=== PATIENT | male | born 1975 | race African-American/Black ===

== ENCOUNTER → 2017-04-01 | Outpatient (CLI) | payer OTHER ==
--- NOTE | 2017-04-01 13:10 | REP ---
Clinical: Radiculopathy. Technique: AP, lateral, bilateral oblique and coned-down views of the lumbosacral spine. Findings: Mild degenerative changes include very subtle anterior spurring at the T12 and L1 levels as well as the L4-5 and L5-S1 levels along with disc space narrowing at T12-L1 and L5-S1. Alignment and lordosis maintained. No acute fracture / compression injury or subluxation. Impression: Mild degenerative changes suggested as described above. Signed by James Salmeron MD 04/01/2017 01:02 P
== END ==
LOC: M LAB 10:59
PROVIDERS: ATTEND Student in an Organized Health Care Education/Training Program
DX: M54.16 Radiculopathy, lumbar region (principal); M51.36 Other intervertebral disc degeneration, lumbar region; M51.37 Other intervertebral disc degeneration, lumbosacral region

== ENCOUNTER → 2017-04-06 | Outpatient (REF) | payer OTHER | LOC: M SFHCPLAZ 12:42 | PROVIDERS: ATTEND Family Medicine | DX: Z11.59 Encounter for screening for other viral diseases (principal); Z11.4 Encounter for screening for human immunodeficiency virus [HIV]; Z53.8 Procedure and treatment not carried out for other reasons ==

== ENCOUNTER → 2017-06-08 | Outpatient (REF) | payer OTHER | LOC: M SFHCPLAZ 12:46 | PROVIDERS: ATTEND Family Medicine | DX: F17.200 Nicotine dependence, unspecified, uncomplicated (principal) ==

== ENCOUNTER 2019-01-05 12:44 | Emergency (ER) | payer OTHER ==
[~2019-01-05] VITALS: Ht 170.2 cm; Wt 87.3 kg
[~2019-01-05 12:44] MED LIST: AMLO5TAB6 PO; LISI20TA PO; SUBO8MIS SL
[2019-01-05] MEDS ORDERED: LISI20TA (12:50)
[2019-01-05] MEDS ORDERED: BANO25CA (12:50)
--- NOTE | 2019-01-05 13:48 | REP ---
Portable chest, 01:28 p.m., single AP upright view: There are no comparisons. The lung rosado are clear. The cardiac size is normal. The sterling, mediastinum, and skeletal structures are unremarkable. Impression: Negative portable chest. Electronically Signed by Ravinder Mack MD 01/05/2019 01:39 P
[2019-01-05 13:49] LABS: BASO % 0.2 % (0.0-1.0); EOS # 0.1 10^3/uL (0.0-0.50); EOS % 1.6 % (0.0-3.0); HEMATOCRIT 38.9 % (42.0-52.0); HEMOGLOBIN 13.3 g/dl (13.5-17.5); LYMPH # 2.9 10^3/uL (1.5-4.5); MEAN CORPUSCULAR HEMOGLOBIN 31.6 pg (27.0-33.0); MEAN CORPUSCULAR HGB CONC 34.2 g/dl (32.0-36.5); MEAN CORPUSCULAR VOLUME 92.4 fl (80.0-96.0); MONO # 0.7 10^3/uL (0.0-0.8); NEUTROPHILS # 4.4 10^3/uL (1.8-7.7); PLATELET COUNT, AUTOMATED 197 10^3/uL (150-450); RED BLOOD COUNT 4.21 10^6/uL (4.30-6.10); WHITE BLOOD COUNT 8.1 10^3/uL (4.0-10.0)
--- NOTE | 2019-01-05 14:12 | REP ---
Supine abdomen two views: Comparison is 10/07/2002. The bowel gas pattern is normal. There is a calcification in the pelvis on the left, nonspecific, ureteral versus phlebolith, correlate with clinical symptoms. This was not present previously. The skeletal structures and soft tissues otherwise are unremarkable. Electronically Signed by Ravinder Mack MD 01/05/2019 02:03 P
[2019-01-05 14:17] LABS: CREATININE FOR GFR 1.63 MG/DL (0.70-1.30); GLOMERULAR FILTRATION RATE 59.3 (>60); MB/CK RELATIVE INDEX 0.49 (< OR =4); POTASSIUM SERUM 4.2 MEQ/L (3.5-5.1); TROPONIN I 0.03 NG/ML (< 0.10)
--- NOTE | 2019-01-05 15:20 | REP ---
Bilateral lower extremity Duplex Doppler venous ultrasound: Real time compression and duplex Doppler interrogation of the bilateral lower extremity deep venous system is performed. Bilaterally, the common femoral, superficial femoral and popliteal veins are fully compressible with transducer pressure and demonstrate normal spontaneous and phasic flow, without evidence of deep venous thrombosis. Impression: No evidence of deep venous thrombosis of the bilateral lower extremity femoral popliteal venous system. Electronically Signed by Ravinder Greene MD 01/05/2019 03:12 P
[2019-01-05] MEDS ORDERED: NICO14DI3 TOP (15:52)
[2019-01-05] MEDS ORDERED: MIRA3350 PO (15:52)
[2019-01-05 16:08] VITALS: BP 114/71
--- NOTE | 2019-01-05 21:59 | ECGEPIP ---
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
== END 2019-01-05 16:15 | disposition home or self-care (01) ==
LOC: M ED 12:44
DX: K59.00 Constipation, unspecified (principal); N18.3 Chronic kidney disease, stage 3 (moderate); I12.9 Hypertensive chronic kidney disease with stage 1 through stage 4 chronic kidney disease, or unspecified chronic kidney disease; Z79.899 Other long term (current) drug therapy; Z79.891 Long term (current) use of opiate analgesic; F17.210 Nicotine dependence, cigarettes, uncomplicated

== ENCOUNTER → 2019-01-09 | Outpatient (CLI) | payer OTHER ==
[~2019-01-09] MED LIST changes: +BANO25CA; +LISI20TA; +MIRA3350 PO; +NICO14DI3 TOP
[2019-01-09 18:11] LABS: APPEARANCE, URINE CLEAR (CLEAR); BACTERIA, URINE AUTO NEGATIVE (NEGATIVE); BILIRUBIN, URINE AUTO NEGATIVE (NEGATIVE); BLOOD, URINE BLOOD NEGATIVE (NEGATIVE); COLOR, URINE YELLOW (YELLOW); GLUCOSE, URINE (UA) AUTO NEGATIVE (NEGATIVE); KETONE, URINE AUTO NEGATIVE (NEGATIVE); LEUKOCYTE ESTERASE, URINE AUTO NEGATIVE (NEGATIVE); MUCUS, URINE SMALL (NEGATIVE); NITRITE, URINE AUTO NEGATIVE (NEGATIVE); PROTEIN, URINE AUTO NEGATIVE (NEGATIVE); RBC, URINE AUTO 1 /HPF (0-3); SPECIFIC GRAVITY URINE AUTO 1.025 (1.002-1.035); SQUAMOUS EPITHELIAL CELL UR AU 0 /HPF (0-6); WBC, URINE AUTO 1 /HPF (0-3)
[2019-01-09 18:34] LABS: MALB URINE SIEMENS 26.5 MG/L; MAU/CREAT RATIO 7.9 MCG/MG (0.0-30.0)
[2019-01-09 18:39] LABS: ALBUMIN 4.2 GM/DL (3.2-5.2); ALT/SGPT 25 U/L (12-78); BILIRUBIN,TOTAL 0.3 MG/DL (0.2-1.0); BLOOD UREA NITROGEN 17 MG/DL (7-18); CARBON DIOXIDE LEVEL 29 MEQ/L (21-32); CHLORIDE LEVEL 106 MEQ/L (98-107); CHOLESTEROL LEVEL 192 MG/DL (<200); CREATININE FOR GFR 1.51 MG/DL (0.70-1.30); GLOMERULAR FILTRATION RATE > 60.0 (>60); GLUCOSE, FASTING 101 MG/DL (70-100); HDL CHOLESTEROL 29 MG/DL (>40); LDL CHOLESTEROL 117 MG/DL (<100); NON-HDL-C 163 MG/DL; POTASSIUM SERUM 4.4 MEQ/L (3.5-5.1); SODIUM LEVEL 140 MEQ/L (136-145); TOTAL PROTEIN 7.5 GM/DL (6.4-8.2); TRIGLYCERIDES LEVEL 229 MG/DL (<150)
== END ==
LOC: M WUC 15:02
PROVIDERS: ATTEND Student in an Organized Health Care Education/Training Program
DX: R07.9 Chest pain, unspecified (principal); N18.3 Chronic kidney disease, stage 3 (moderate)

== ENCOUNTER 2021-05-28 11:39 | Emergency (ER) | payer OTHER ==
[~2021-05-28] VITALS: Ht 170.2 cm; Wt 93.3 kg
[~2021-05-28 11:39] MED LIST changes: +AMLO1TAB24 PO; -AMLO5TAB6 PO; -BANO25CA; +DIPH-319; -LISI20TA; -LISI20TA PO; +LISI20TA35; +LISI20TA35 PO
[2021-05-28] MEDS ORDERED: hydroCHLOROthiazide 12.5 MG CAPSULE PO ONE (12:20)
[2021-05-28 12:51] VITALS: BP 216/131
[2021-05-28 13:05] LABS: BASO % 0.6 % (0.0-1.0); EOS # 0.2 10^3/uL (0.0-0.5); EOS % 3.2 % (0.0-3.0); HEMATOCRIT 41.4 % (42.0-52.0); HEMOGLOBIN 13.4 g/dl (13.5-17.5); LYMPH % 46.6 % (24.0-44.0); MEAN CORPUSCULAR HEMOGLOBIN 31.7 pg (27.0-33.0); MEAN CORPUSCULAR HGB CONC 32.4 g/dl (32.0-36.5); MEAN CORPUSCULAR VOLUME 97.9 fl (80.0-96.0); MONO # 0.6 10^3/uL (0.0-0.8); MONO % 9.5 % (2.0-8.0); NEUTROPHILS # 2.6 10^3/uL (1.5-8.5); NEUTROPHILS % 39.8 % (36.0-66.0); PLATELET COUNT, AUTOMATED 210 10^3/uL (150-450); RED BLOOD COUNT 4.23 10^6/uL (4.30-6.10); WHITE BLOOD COUNT 6.5 10^3/uL (4.0-10.0)
--- NOTE | 2021-05-28 13:23 | REP ---
INDICATION: CHEST PAIN. COMPARISON: 01/05/2019. TECHNIQUE: Single portable AP view of the chest was performed. FINDINGS: There is no acute infiltrate or pulmonary edema. Lungs are clear. The heart is not significantly enlarged. The mediastinal silhouette is unremarkable. The visualized osseous structures are intact.There is again elevation of the right hemidiaphragm, unchanged. IMPRESSION: No acute pulmonary disease. <Electronically signed by Ravinder Greene > 05/28/21 [id number]
[2021-05-28 13:40] LABS: ALBUMIN 3.7 GM/DL (3.2-5.2); ALT/SGPT 26 U/L (12-78); BILIRUBIN,DIRECT < 0.1 MG/DL (0.0-0.2); BILIRUBIN,TOTAL 0.2 MG/DL (0.2-1.0); BLOOD UREA NITROGEN 19 MG/DL (7-18); CALCIUM LEVEL 8.9 MG/DL (8.5-10.1); CARBON DIOXIDE LEVEL 29 MEQ/L (21-32); CHLORIDE LEVEL 107 MEQ/L (98-107); CK-MB VALUE MASS 4.8 NG/ML (<3.6); CPK CREATINE PHOSPHOKINASE 629 U/L (39-308); CREATININE FOR GFR 1.05 MG/DL (0.70-1.30); GLOMERULAR FILTRATION RATE > 60.0 (>60); GLUCOSE, FASTING 110 MG/DL (70-100); LIPASE 69 U/L (73-393); MB/CK RELATIVE INDEX 0.76 (< OR =4); NT-PRO BNP 172 PG/ML (<125); POTASSIUM SERUM 4.7 MEQ/L (3.5-5.1); SODIUM LEVEL 139 MEQ/L (136-145); TOTAL PROTEIN 7.3 GM/DL (6.4-8.2); TROPONIN I 0.04 NG/ML (< 0.10)
[2021-05-28] MEDS ORDERED: NS 1,000 ML IV ONE (14:05)
[2021-05-28 18:33] LABS: CK-MB VALUE MASS 4.2 NG/ML (<3.6); MB/CK RELATIVE INDEX 0.82 (< OR =4); TROPONIN I 0.03 NG/ML (< 0.10)
[2021-05-28] MEDS ORDERED: LISI20TA35 PO (18:52)
[2021-05-28 19:24] VITALS: BP 171/105
--- NOTE | 2021-05-29 11:33 | ECGEPIP ---
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
--- NOTE | 2021-05-29 11:39 | ECGEPIP ---
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
== END 2021-05-28 19:30 | disposition home or self-care (01) ==
LOC: M ED 11:39
DX: I12.9 Hypertensive chronic kidney disease with stage 1 through stage 4 chronic kidney disease, or unspecified chronic kidney disease (principal); N18.30 Chronic kidney disease, stage 3 unspecified; R94.31 Abnormal electrocardiogram [ECG] [EKG]; Z79.899 Other long term (current) drug therapy

== ENCOUNTER 2024-03-10 16:10 | Inpatient (IN) | payer OTHER ==
[~2024-03-10] VITALS: Ht 177.8 cm; Wt 86.5 kg
[~2024-03-10 16:10] MED LIST changes: -DIPH-319; +DIPH-429
[2024-03-10 17:34] LABS: BASO % 0.3 % (0.0-1.0); EOS # 0.1 10^3/uL (0.0-0.5); EOS % 0.9 % (0.0-3.0); HEMATOCRIT 39.8 % (42.0-52.0); HEMOGLOBIN 13.2 g/dl (13.5-17.5); LYMPH % 29.4 % (24.0-44.0); MEAN CORPUSCULAR HEMOGLOBIN 32.2 pg (27.0-33.0); MEAN CORPUSCULAR HGB CONC 33.2 g/dl (32.0-36.5); MEAN CORPUSCULAR VOLUME 97.1 fl (80.0-96.0); MONO # 0.7 10^3/uL (0.0-0.8); MONO % 10.1 % (2.0-8.0); NEUTROPHILS # 3.9 10^3/uL (1.5-8.5); PLATELET COUNT, AUTOMATED 191 10^3/uL (150-450); WHITE BLOOD COUNT 6.6 10^3/uL (4.0-10.0)
[2024-03-10 17:55] LABS: LIPASE 25 U/L (12-53)
[2024-03-10 17:56] LABS: CPK CREATINE PHOSPHOKINASE 445 U/L (46-171)
[2024-03-10 17:57] LABS: ALBUMIN 4.5 G/DL (3.2-5.2); ALKALINE PHOSPHATASE 84 U/L (46-116); ALT/SGPT 17 U/L (7.0-40); AST/SGOT 30 U/L (<34); BILIRUBIN,DIRECT 0.2 MG/DL (<0.4); BILIRUBIN,TOTAL 0.6 MG/DL (0.3-1.2); CK-MB VALUE MASS 3.9 NG/ML (<3.6); MB/CK RELATIVE INDEX 0.87 (< OR =4); TOTAL PROTEIN 7.7 G/DL (5.7-8.2)
[2024-03-10 18:45] LABS: INR 1.15; PARTIAL THROMBOPLASTIN TIME 27.2 SECONDS (24.8-34.2); PROTHROMBIN TIME 14.4 SECONDS (12.5-14.5)
[2024-03-10 18:49] LABS: BLOOD UREA NITROGEN 23 MG/DL (9-23); CALCIUM LEVEL 11.1 MG/DL (8.5-10.1); CARBON DIOXIDE LEVEL 28 MMOL/L (20-31); CHLORIDE LEVEL 101 MMOL/L (98-107); CREATININE FOR GFR 1.57 MG/DL (0.70-1.30); GLOMERULAR FILTRATION RATE > 60.0 (>56); GLUCOSE, FASTING 98 MG/DL (60-100); POTASSIUM SERUM 4.2 MMOL/L (3.5-5.1); SODIUM LEVEL 136 MMOL/L (136-145)
[2024-03-10] MEDS: MORPHINE 2 MG/ML 1ML VIAL IV ONE (18:50)
[2024-03-10 19:02] LABS: CK-MB VALUE MASS 3.6 NG/ML (<3.6)
[2024-03-10 19:03] LABS: MB/CK RELATIVE INDEX 0.79 (< OR =4)
[2024-03-10] MEDS ORDERED: NITROGLYCERIN 2% OINT 1 GM *U/D* PKT TOP ONE (19:05)
[2024-03-10 19:10] LABS: TOTAL PROTEIN,RANDOM URINE 95.1 MG/DL (0.0-14.0)
[2024-03-10] MEDS: NITROGLYCERIN 2% OINT 1 GM *U/D* PKT TOP ONE (19:35)
[2024-03-10 19:43] LABS: AMPHETAMINES LEVEL URINE NEGATIVE (NEGATIVE); BARBITURATES URINE NEGATIVE (NEGATIVE); BENZODIAZEPINES URINE NEGATIVE (NEGATIVE); CANNABINOIDS URINE NEGATIVE (NEGATIVE); COCAINE METABOLITE URINE NEGATIVE (NEGATIVE); METHADONE URINE NEGATIVE (NEGATIVE); OPIATES URINE NEGATIVE (NEGATIVE); PHENCYCLIDINE URINE NEGATIVE (NEGATIVE)
[2024-03-10] MEDS: NS 1,000 ML IV ONE (19:46)
[2024-03-10] MEDS: KETOROLAC 30 MG/ML 1ML VIAL IV ONE (20:15)
[2024-03-10] MEDS: LABETALOL 100MG/20ML VIAL IV STA ×2 (20:16→23:39)
[2024-03-10] MEDS ORDERED: ACET-897 PO (20:28)
[2024-03-10] MEDS ORDERED: HOME MED LIST COMPLETE! XX SCH (20:30)
[2024-03-10 20:46] LABS: CPK CREATINE PHOSPHOKINASE 485 U/L (46-171); MB/CK RELATIVE INDEX 0.82 (< OR =4)
[2024-03-10 21:26] LABS: HIV 1&2 SCREEN NEGATIVE (NEGATIVE)
[2024-03-11] VITALS (7 sets, daily range): BP systolic 142–189; BP diastolic 80–107; TEMP 97.5–98; O2SAT 93–100
[2024-03-11] MEDS ORDERED: ACETAMINOPHEN *IV* 1,000 MG in IV 1 EA IV PRN (00:10)
[2024-03-11] MEDS ORDERED: ONDANSETRON 4MG 2ML VIAL IV PRN (00:10)
[2024-03-11] MEDS: BUPRENORPHINE/NALOXONE 8-2MG SUBLINGUAL TABLET(SUBOXONE) SL ONE (00:20)
[2024-03-11 00:58] LABS: ETHYL ALCOHOL (ETHANOL) < 0.003 % (0.000-0.010)
[2024-03-11] MEDS: LABETALOL 200 MG TAB PO ONE (01:28)
[2024-03-11] MEDS: NICOTINE 21MG/24HR 1 EA TRANSDERMAL TD ONE (01:28)
[2024-03-11] MEDS: hydrALAZINE 20MG/ML 1ML VIAL IV PRN (02:26)
[2024-03-11] MEDS: HEPARIN SOD (PORCINE) 5000UNITS/ML 1ML VIAL/SYRINGE SC SCH (05:45)
[2024-03-11] MEDS ORDERED: SELF1KIT MC (08:09)
[2024-03-11] MEDS ORDERED: AMLO1TAB25 PO (08:09)
[2024-03-11] MEDS ORDERED: LABE300T28 PO (08:09)
[2024-03-11] MEDS: MIRALAX *UNIT DOSE* 17GM PACKET PO SCH (08:43)
[2024-03-11] MEDS: DOCUSATE SODIUM 100MG CAPSULE PO SCH (08:43)
[2024-03-11] MEDS: BUPRENORPHINE/NALOXONE 8-2MG SUBLINGUAL TABLET(SUBOXONE) SL SCH (08:43)
[2024-03-11] MEDS: LABETALOL 100MG TAB PO SCH (08:44)
[2024-03-11] MEDS ORDERED: **hydrALAZINE HCL** 25 MG TAB PO SCH (09:00)
[2024-03-11] MEDS ORDERED: LABETALOL 200 MG TAB PO SCH (09:00)
[2024-03-11] MEDS: CALCIUM CARBONATE 500 MG CHEW U/D PO ONE (10:10)
[2024-03-11] MEDS: PANTOPRAZOLE 40MG VIAL IV ONE (10:10)
[2024-03-11] MEDS: MAALOX 30 ML SUSP *UDC PO ONE (10:10)
[2024-03-11] MEDS: ONDANSETRON 4MG 2ML VIAL IV ONE (10:10)
[2024-03-11] MEDS ORDERED: NITROGLYCERIN 0.4MG SUBL TABLET SL PRN (10:10)
[2024-03-11] MEDS: MORPHINE 2 MG/ML 1ML VIAL IV ONE (10:10)
[2024-03-11] MEDS: SUCRALFATE SUSP 1GM/10ML UD PO ONE (10:10)
[2024-03-11] MEDS: NITROGLYCERIN 0.4MG SUBL TABLET SL STA (10:11)
[2024-03-11] MEDS ORDERED: ISOVUE-370 76% 100ML VIAL As Ordered ONE (10:18)
[2024-03-11 11:17] LABS: CK-MB VALUE MASS 4.7 NG/ML (<3.6)
[2024-03-11 11:19] LABS: MB/CK RELATIVE INDEX 0.55 (< OR =4)
[2024-03-11] MEDS: SUCRALFATE SUSP 1GM/10ML UD PO SCH (13:10)
[2024-03-11] MEDS ORDERED: ISOS20TA4 PO (15:37)
[2024-03-11 16:20] LABS: BLOOD UREA NITROGEN 26 MG/DL (9-23); CALCIUM LEVEL 9.5 MG/DL (8.5-10.1); CARBON DIOXIDE LEVEL 25 MMOL/L (20-31); CHLORIDE LEVEL 104 MMOL/L (98-107); CREATININE FOR GFR 1.49 MG/DL (0.70-1.30); GLOMERULAR FILTRATION RATE > 60.0 (>56); GLUCOSE, FASTING 111 MG/DL (60-100); POTASSIUM SERUM 4.6 MMOL/L (3.5-5.1); SODIUM LEVEL 135 MMOL/L (136-145)
[2024-03-11] MEDS ORDERED: ISOSORBIDE DIN. (ISORDIL) 20 MG TAB PO SCH (21:00)
== END 2024-03-11 16:44 | disposition home or self-care (01) | DRG 254 ==
LOC: M ED 16:10 → M ED INP 03-11 00:06 → M PCU 03-11 02:12
PROVIDERS: ADMIT Preventive Medicine Undersea and Hyperbaric Medicine; ATTEND Preventive Medicine Undersea and Hyperbaric Medicine
PROC: B246ZZZ Ultrasonography of Right and Left Heart (ICD-10-PCS; principal; 2024-03-11)
DX: K59.00 Constipation, unspecified (principal); I27.20 Pulmonary hypertension, unspecified; F17.200 Nicotine dependence, unspecified, uncomplicated; I12.9 Hypertensive chronic kidney disease with stage 1 through stage 4 chronic kidney disease, or unspecified chronic kidney disease; N18.2 Chronic kidney disease, stage 2 (mild); I16.0 Hypertensive urgency; Z79.891 Long term (current) use of opiate analgesic; Z79.899 Other long term (current) drug therapy; I08.1 Rheumatic disorders of both mitral and tricuspid valves

== ENCOUNTER 2024-03-16 17:00 | Emergency (ER) | payer MEDICAID, OTHER ==
[~2024-03-16] VITALS: Ht 175.3 cm; Wt 90.4 kg
[~2024-03-16 17:00] MED LIST changes: +ACET-897 PO; +AMLO1TAB25 PO; +ISOS20TA4 PO; +LABE300T28 PO; +SELF1KIT MC
[2024-03-16 19:58] LABS: BASO % 0.3 % (0.0-1.0); EOS # 0.1 10^3/uL (0.0-0.5); EOS % 1.7 % (0.0-3.0); HEMATOCRIT 34.1 % (42.0-52.0); HEMOGLOBIN 11.2 g/dl (13.5-17.5); LYMPH # 2.2 10^3/uL (1.5-5.0); LYMPH % 37.3 % (24.0-44.0); MEAN CORPUSCULAR HEMOGLOBIN 32.6 pg (27.0-33.0); MEAN CORPUSCULAR HGB CONC 32.8 g/dl (32.0-36.5); MEAN CORPUSCULAR VOLUME 99.1 fl (80.0-96.0); MONO # 0.5 10^3/uL (0.0-0.8); MONO % 9.3 % (2.0-8.0); NEUTROPHILS % 51.1 % (36.0-66.0); PLATELET COUNT, AUTOMATED 205 10^3/uL (150-450); RED BLOOD COUNT 3.44 10^6/uL (4.30-6.10); WHITE BLOOD COUNT 5.8 10^3/uL (4.0-10.0)
[2024-03-16 20:27] LABS: LIPASE 24 U/L (12-53)
[2024-03-16 20:29] LABS: ALBUMIN 3.8 G/DL (3.2-5.2); ALKALINE PHOSPHATASE 73 U/L (46-116); ALT/SGPT 37 U/L (7.0-40); AST/SGOT 53 U/L (<34); BILIRUBIN,DIRECT 0.1 MG/DL (<0.4); BILIRUBIN,TOTAL 0.3 MG/DL (0.3-1.2); BLOOD UREA NITROGEN 19 MG/DL (9-23); CALCIUM LEVEL 9.2 MG/DL (8.5-10.1); CARBON DIOXIDE LEVEL 27 MMOL/L (20-31); CHLORIDE LEVEL 107 MMOL/L (98-107); CREATININE FOR GFR 1.29 MG/DL (0.70-1.30); GLOMERULAR FILTRATION RATE > 60.0 (>56); GLUCOSE, FASTING 104 MG/DL (60-100); POTASSIUM SERUM 4.7 MMOL/L (3.5-5.1); SODIUM LEVEL 138 MMOL/L (136-145); TOTAL PROTEIN 6.8 G/DL (5.7-8.2)
[2024-03-16] MEDS: MIRALAX *UNIT DOSE* 17GM PACKET PO STA (22:34)
[2024-03-16] MEDS: DOCUSATE SODIUM 100MG CAPSULE PO ONE (22:34)
[2024-03-16] MEDS: MAGNESIUM CITRATE 300ML BTL PO ONE (23:00)
[2024-03-16 23:24] VITALS: BP 133/75; TEMP 98; O2SAT 95
== END 2024-03-16 23:25 | disposition home or self-care (01) ==
LOC: M ED 17:00
DX: K59.00 Constipation, unspecified (principal); I10 Essential (primary) hypertension; M32.9 Systemic lupus erythematosus, unspecified; F11.10 Opioid abuse, uncomplicated; F17.200 Nicotine dependence, unspecified, uncomplicated; Z79.899 Other long term (current) drug therapy

== ENCOUNTER 2024-08-13 16:14 | Emergency (ER) | payer OTHER ==
[~2024-08-13] VITALS: Ht 177.8 cm; Wt 89.6 kg
[2024-08-13 16:17] VITALS: TEMP 99
[2024-08-13 17:47] LABS: BLOOD UREA NITROGEN 21 MG/DL (9-23); CALCIUM LEVEL 9.4 MG/DL (8.5-10.1); CARBON DIOXIDE LEVEL 24 MMOL/L (20-31); CHLORIDE LEVEL 109 MMOL/L (98-107); CREATININE FOR GFR 1.26 MG/DL (0.70-1.30); GLOMERULAR FILTRATION RATE > 60.0 (>56); GLUCOSE, FASTING 115 MG/DL (60-100); POTASSIUM SERUM 4.4 MMOL/L (3.5-5.1); SODIUM LEVEL 139 MMOL/L (136-145)
[2024-08-13] MEDS ORDERED: AMLO1TAB25 PO (17:48)
[2024-08-13] MEDS ORDERED: LABE300T28 PO (17:48)
[2024-08-13 18:13] VITALS: BP 212/124
[2024-08-13] MEDS: LABETALOL 100MG TAB PO ONE (18:13)
[2024-08-13 18:45] VITALS: BP 188/118; O2SAT 98
== END 2024-08-13 19:00 | disposition home or self-care (01) ==
LOC: M ED 16:14
DX: I10 Essential (primary) hypertension (principal); Z79.899 Other long term (current) drug therapy

== ENCOUNTER → 2024-08-28 | Outpatient (CLI) | payer OTHER ==
[2024-08-28 15:05] LABS: BASO % 0.4 % (0.0-1.0); EOS # 0.2 10^3/uL (0.0-0.5); EOS % 2.1 % (0.0-3.0); HEMOGLOBIN 12.6 g/dl (13.5-17.5); LYMPH # 5.6 10^3/uL (1.5-5.0); LYMPH % 58.7 % (24.0-44.0); MEAN CORPUSCULAR HEMOGLOBIN 32.9 pg (27.0-33.0); MEAN CORPUSCULAR HGB CONC 32.3 g/dl (32.0-36.5); MEAN CORPUSCULAR VOLUME 101.8 fl (80.0-96.0); MONO # 0.7 10^3/uL (0.0-0.8); MONO % 7.8 % (2.0-8.0); NEUTROPHILS # 2.9 10^3/uL (1.5-8.5); NEUTROPHILS % 30.9 % (36.0-66.0); PLATELET COUNT, AUTOMATED 226 10^3/uL (150-450); RED BLOOD COUNT 3.83 10^6/uL (4.30-6.10); WHITE BLOOD COUNT 9.5 10^3/uL (4.0-10.0)
[2024-08-28 15:30] LABS: ALBUMIN 4.2 G/DL (3.2-5.2); ALKALINE PHOSPHATASE 82 U/L (40-129); ALT/SGPT 23 U/L (7.0-40); AST/SGOT 24 U/L (<34); BILIRUBIN,TOTAL 0.2 MG/DL (0.3-1.2); BLOOD UREA NITROGEN 26 MG/DL (9-23); CALCIUM LEVEL 9.5 MG/DL (8.5-10.1); CARBON DIOXIDE LEVEL 28 MMOL/L (20-31); CHLORIDE LEVEL 107 MMOL/L (98-107); CHOLESTEROL LEVEL 142 MG/DL (<200); CHOLESTEROL RISK RATIO 5.01 (<5); CPK CREATINE PHOSPHOKINASE 528 U/L (46-171); GLOMERULAR FILTRATION RATE > 60.0 (>56); GLUCOSE, FASTING 104 MG/DL (60-100); HDL CHOLESTEROL 28.3 MG/DL (>40); LDL CHOLESTEROL 59.1 MG/DL (<100); MAGNESIUM LEVEL 1.7 MG/DL (1.8-2.4); NON-HDL-C 113.7 MG/DL; POTASSIUM SERUM 4.2 MMOL/L (3.5-5.1); SODIUM LEVEL 142 MMOL/L (136-145); TOTAL PROTEIN 7.6 G/DL (5.7-8.2); TRIGLYCERIDES LEVEL 273 MG/DL (<150)
[2024-08-28 15:33] LABS: THYROID STIMULATING HORMONE 1.593 uIU/ML (0.55-4.78)
[2024-08-28 15:36] LABS: HEMOGLOBIN A1c 5.7 % (4.0-6.0)
== END ==
LOC: M PLALAB 12:45
PROVIDERS: ATTEND Nurse Practitioner Family
DX: R06.02 Shortness of breath (principal); I10 Essential (primary) hypertension; R74.8 Abnormal levels of other serum enzymes; E78.2 Mixed hyperlipidemia; R73.03 Prediabetes

== ENCOUNTER → 2024-10-24 | Outpatient (CLI) | payer OTHER | LOC: M RAD 09:01 | PROVIDERS: ATTEND Nurse Practitioner Family | DX: I10 Essential (primary) hypertension (principal) ==

== ENCOUNTER → 2025-04-02 | Outpatient (REF) | payer OTHER | LOC: M SFHCPLAZ 15:22 | PROVIDERS: ATTEND Nurse Practitioner Family | DX: J38.1 Polyp of vocal cord and larynx (principal) ==

== ENCOUNTER → 2025-06-26 | Outpatient (CLI) | payer OTHER ==
[~2025-06-26] MED LIST changes: +ATOR40TA75 PO; +CHLO125TA PO; +METO1TAB33 PO; +SPIR-10 PO
== END ==
LOC: M RAD 17:03
PROVIDERS: ATTEND Physician Assistant
DX: Z87.891 Personal history of nicotine dependence (principal)

== ENCOUNTER → 2025-08-16 | Outpatient (CLI) | payer OTHER | LOC: M PLAIMG 15:00 | PROVIDERS: ATTEND Physician Assistant | DX: I11.0 Hypertensive heart disease with heart failure (principal); I50.9 Heart failure, unspecified ==

== ENCOUNTER → 2025-08-30 | Outpatient (REF) | payer OTHER | LOC: M LAB REF 13:32 | PROVIDERS: ATTEND Physician Assistant | DX: R06.00 Dyspnea, unspecified (principal); R94.2 Abnormal results of pulmonary function studies ==

== ENCOUNTER → 2025-08-30 | Outpatient (REF) | payer OTHER ==
[2025-08-30 14:06] LABS: BASO # 0.1 10^3/uL (0.0-0.2); BASO % 0.6 % (0.0-1.0); EOS # 0.3 10^3/uL (0.0-0.5); EOS % 3.2 % (0.0-3.0); LYMPH # 3.4 10^3/uL (1.5-5.0); LYMPH % 37.9 % (24.0-44.0); MONO # 0.8 10^3/uL (0.0-0.8); MONO % 8.7 % (2.0-8.0); NEUTROPHILS # 4.4 10^3/uL (1.5-8.5); NEUTROPHILS % 49.1 % (36.0-66.0); PLATELET COUNT, AUTOMATED 274 10^3/uL (150-450)
[2025-08-30 14:41] LABS: ALT/SGPT 22.0 U/L (7.0-40); AST/SGOT 27.0 U/L (<34); CALCIUM LEVEL 9.1 MG/DL (8.5-10.1); CARBON DIOXIDE LEVEL 25.0 MMOL/L (20-31); CHLORIDE LEVEL 108.0 MMOL/L (98-107); CHOLESTEROL LEVEL 116.0 MG/DL (<200); CHOLESTEROL RISK RATIO 4.2 (<5); CREATININE FOR GFR 1.29 MG/DL (0.70-1.30); GLOMERULAR FILTRATION RATE 66.7 (>56); LDL CHOLESTEROL 46.2 MG/DL (<100); MAGNESIUM LEVEL 1.6 MG/DL (1.8-2.4); NON-HDL-C 88.4 MG/DL; POTASSIUM SERUM 4.5 MMOL/L (3.5-5.1); SODIUM LEVEL 141.0 MMOL/L (136-145); TRIGLYCERIDES LEVEL 211.0 MG/DL (<150)
== END ==
LOC: M LAB REF 13:34
PROVIDERS: ATTEND Physician Assistant
DX: I11.0 Hypertensive heart disease with heart failure (principal); I50.32 Chronic diastolic (congestive) heart failure; E78.5 Hyperlipidemia, unspecified

== ENCOUNTER 2025-09-11 08:08 | Day surgery (SDC) | payer OTHER ==
[~2025-09-11] VITALS: Ht 177.8 cm; Wt 88.5 kg
[2025-09-11 09:29] VITALS: TEMP 97.4
[2025-09-11 10:02] VITALS: BP 138/80; O2SAT 98
== END 2025-09-11 10:18 | disposition home or self-care (01) ==
LOC: M OPP 08:08
PROVIDERS: ATTEND Surgery
DX: Z12.11 Encounter for screening for malignant neoplasm of colon (principal); D12.3 Benign neoplasm of transverse colon; K52.9 Noninfective gastroenteritis and colitis, unspecified; Z79.899 Other long term (current) drug therapy; F17.210 Nicotine dependence, cigarettes, uncomplicated